=== PATIENT | male | born 1945 | race Caucasian/White ===

== ENCOUNTER 2018-04-20 18:10 | Emergency (ER) | payer MEDICARE, BC ==
[2018-04-20 18:28] VITALS: BP 155/86
--- NOTE | 2018-04-20 18:40 | EDM.PDOC ---
<Shayne Birmingham - Last Filed: 04/20/18 19:58> ED HPI GENERAL MEDICAL PROBLEM - General Chief Complaint: Lower Extremity Injury/Pain Stated Complaint: LT LEG INJURY Time Seen by Provider: 04/20/18 18:40 - History of Present Illness INITIAL COMMENTS - FREE TEXT/NARRATIVE: 72-year-old male presents to the emergency room with a left leg injury Patient was out feeding his cats and dogs slipped on the ice and twisted his foot in and developed significant discomfort around his ankle. He was brought into the emergency room for evaluation. Patient denies any other injuries associated with this Left Lower Leg Pain Score (Numeric/FACES): 5 - Related Data Allergies Allergy/AdvReac Type Severity Reaction Status Date / Time No Known Allergies Allergy Verified 04/06/16 08:12 Home Meds: Home Meds Aspirin [Ecotrin] 162 mg PO DAILY 04/05/16 [History] Ramipril 1 cap PO DAILY 04/05/16 [History] Tamsulosin [Flomax] 1 cap PO BID 04/05/16 [History] Triamcinolone Acetonide [Triamcinolone Acetonide 0.1% Crm] 1 applic TOP ASDIRECTED PRN 04/05/16 [History] atorvaSTATin [Lipitor] 1 tab PO DAILY 04/05/16 [History] Acetaminophen/HYDROcodone [[place] 325-5 MG] 1 - 2 tab PO Q6H PRN #30 tablet 04/20 [Rx] Past Medical History HEENT History: Reports: Impaired Vision Cardiovascular History: Reports: Afib, CAD, High Cholesterol, Hypertension, [place], Other (See Below) Other Cardiovascular History: afib (post op), bradycardia, mitral and tricuspid valve regurgitation Respiratory History: Reports: None Gastrointestinal History: Reports: None Genitourinary History: Reports: BPH, Other (See Below) Other Genitourinary History: prostatitis 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 Musculoskeletal History: Reports: None Neurological History: Reports: None Psychiatric History: Reports: None Endocrine/Metabolic History: Reports: None Hematologic History: Reports: None Immunologic History: Reports: None Oncologic (Cancer) History: Reports: None Dermatologic History: Reports: Eczema - Past Surgical History HEENT Surgical History: Reports: Cataract Surgery Cardiovascular Surgical History: Reports: Coronary Artery Bypass Social & Family History - Caffeine Use Caffeine Use: Reports: None Review of Systems - Review of Systems Review Of Systems: See Below Respiratory: Reports: No Symptoms Cardiovascular: Reports: No Symptoms GI/Abdominal: Reports: No Symptoms Neurological: Reports: No Symptoms ED EXAM, GENERAL - Physical Exam Exam: See Below General Appearance: Alert, No Apparent Distress Respiratory/Chest: No Respiratory Distress, Lungs Clear, Normal Breath Sounds Cardiovascular: Regular Rate, Rhythm, No Edema, No Murmur Extremities: Other (Amylase his left leg shows no tenderness around the knee from palpation over the tibia and fibula proximally is nontender moving down is fairly unremarkable and he get very close to the ankle these get some discomfort around the lateral malleolus specifically over the anterior talofibular and calcaneofibular ligaments not a lot of posterior tenderness minimal discomfort over the medial malleolus neurovascular status of the foot is normal he has some skin changes related to age and fungal involvement of the nails.) Course - Vital Signs Last Recorded V/S: Last Vital Signs Temp 97.2 F 04/20/18 18:27 Pulse 85 04/20/18 18:27 Resp 20 04/20/18 18:27 BP 155/86 H 04/20/18 18:27 Pulse Ox 97 04/20/18 18:27 - Orders/Labs/Meds Orders: Active Orders 24 hr Category Date Time Status Ankle Min 3V Lt [CR] Stat Exams 04/20/18 18:45 Taken Lower Leg wo Cont Lt [CT] Stat Exams 04/20/18 19:55 Taken Meds: Medications Discontinued Medications Generic Name Dose Route Start Last Admin Trade Name Aubrey PRN Reason Stop Dose Admin Fentanyl 100 mcg 04/20/18 19:55 Sublimaze IVPUSH 04/20/18 19:56 ONETIME ONE Fentanyl 50 mcg 04/20/18 19:55 04/20/18 20:07 Sublimaze IM 04/20/18 19:56 50 mcg ONETIME ONE Administration Fentanyl 100 mcg 04/20/18 21:20 04/20/18 21:26 Sublimaze IVPUSH 04/20/18 21:21 100 mcg ONETIME ONE Administration Oxycodone/Acetaminophen 1 tab 04/20/18 19:59 04/20/18 20:06 Percocet 325-5 Mg PO 04/20/18 20:00 1 tab ONETIME ONE Administration - Re-Assessments/Exams Free Text/Narrative Re-Assessment/Exam: 04/20/18 20:07 X-ray examination of the ankle shows spiral oblique comminuted fracture of the distal tibia with joint involvement he has distal fibular fracture as well. X- rays were reviewed by Dr. Geronimo agrees with splinting and follow-up anticipating surgical repair this next week. Dr. Geronimo is anticipating consult to Dr. Anshul Crabtree for this anticipated procedure. The patient will be placed in a posterior splint with medial lateral stirrup. Prior to splinting the patient will have a CT of the lower extremity. Dr. Geronimos office will contact the patient with the information I did notify Dr. Geronimo of a change in the patient's phone number [phone]. 04/20/18 20:11 Departure - Departure Disposition: Home, Self-Care 01 Clinical Impression: Fracture of distal end of tibia - Discharge Information Prescriptions: Acetaminophen/HYDROcodone [[place] 325-5 MG] 1 - 2 tab PO Q6H PRN #30 tablet PRN Reason: Pain Instructions: Pain Medicine Instructions, [id number], Cast or Splint Care, Adult, Crutch Use, Adult, [id number], Tibial Fracture, Adult Referrals: Pepito Esquivel Jr, MD [Primary Care Provider] - Forms: ED Department Discharge Additional Instructions: Return to the emergency room with any questions problems or worsening symptoms. Return with worsening pain. Even though your leg is splinted never put weight on it. Use crutches all the time. Keep your leg elevated as much as you can this will help minimize swelling and discomfort keep it up at the level of your heart. Use the pain medication as needed. It is anticipated [facility] in [place] we'll contact you for an appointment on Sunday their phone number is [phone]. Dr. Geronimo is the orthopedic surgeon I discussed your case with <Magalis Magdaleno - Last Filed: 04/20/18 22:09> ED TRAUMA EXTREMITY PROCEDURES - Splinting Left Lower Extremity Pre-Procedure NV Status: Normal Post-Procedure NV Status: Normal Splint Material: Fiberglass Splint Design: Other (posterior splint with stirrup splint) Applied & Form Fitted By: Provider Provider Post-Splint Application NV Check: NV Status Normal Complications: No Progress/Comments: Patient tolerated the procedure well. Course - Re-Assessments/Exams Free Text/Narrative Re-Assessment/Exam: 04/20/18 22:05 Patient is resting comfortably after receiving fentanyl and a short posterior splint with stirrup. CT results of his lower leg reveals commuted and slightly displaced fracture involving the distal end fibula. Patient is stable and ready for discharge. I did instruct the patient on compartment syndrome and nonweightbearing. Patient verbalized understanding and is comfortable with plan for discharge. I did reemphasize to the patient that he is to follow-up with in [place] at the [facility] on April 23. I instructed the patient to return to the emergency room for any new or acutely worsening symptoms. Departure - Departure Time of Disposition: 22:07 - Discharge Information *PRESCRIPTION DRUG MONITORING PROGRAM REVIEWED*: Not Applicable *COPY OF PRESCRIPTION DRUG MONITORING REPORT IN PATIENT LEONIDES: Not Applicable
[2018-04-20] MEDS ORDERED: fentaNYL 100 MCG/2 ML SDV IVPUSH ONE ×2 (19:55→21:20)
[2018-04-20] MEDS ORDERED: fentaNYL 100 MCG/2 ML SDV IM ONE (19:55)
[2018-04-20] MEDS ORDERED: Acetaminophen/oxyCODONE 325-5 MG Tab PO ONE ×3 (19:59→22:15)
[2018-04-20] MEDS ORDERED: Acetaminophen/HYDROcodone 325-5 MG Tab PO ONE (23:01)
[2018-04-20] MEDS ORDERED: Ondansetron 4 MG Tab.DIS PO ONE (23:06)
--- NOTE | 2018-04-22 07:38 | CT ---
CT left lower extremity Technique: Multiple axial sections were obtained from above the knee joint inferiorly through the foot within the left lower extremity. Reconstructed coronal and sagittal images were reviewed. Comparison: Previous plain film study performed earlier on the same day (6:59 PM). Findings: Medial joint space narrowing is seen within the knee. Mild degenerative change is noted within the patellofemoral joint. Comminuted fracture is identified within the distal diaphysis of the tibia. Tibial fracture extends into the ankle joint. Tibial fracture shows mild comminution with mild apex anterior angulation. Fracture fragments are displaced up to 9 mm. Distal fibular fracture is also noted which shows comminution and displacement up to 6 mm. Diffuse soft tissue swelling is noted. Impression: 1. Comminuted left tibial fracture with articular extension into the ankle. Mild displacement and angulation is seen. 2. Comminuted distal fibular fracture showing mild displacement. 3. Soft tissue swelling. Diagnostic code #3 I agree with preliminary report from [facility], finalized on 04/20/18, 10:48 PM Central Time
--- NOTE | 2018-04-22 08:14 | CR ---
Left ankle: Three views of the left ankle were obtained. Comparison: No previous study. Fracture is identified within the distal diaphysis of the tibia showing comminution as well as extension into the ankle joint. Mild displacement is seen up to 6.8 mm. Comminuted distal fibular fracture is noted with displacement up to 6 mm. Soft tissue swelling is noted. Ankle mortise appears symmetric. Impression: 1. Distal tibia and fibular fractures as noted above. Diagnostic code #3
== END 2018-04-20 23:25 | disposition home or self-care (01) ==
LOC: JD.ED 18:10
DX: S82.302A Unspecified fracture of lower end of left tibia, initial encounter for closed fracture (principal); S82.832A Other fracture of upper and lower end of left fibula, initial encounter for closed fracture; I48.91 Unspecified atrial fibrillation; E78.00 Pure hypercholesterolemia, unspecified; I10 Essential (primary) hypertension; I25.2 Old myocardial infarction; Z95.1 Presence of aortocoronary bypass graft; Z79.82 Long term (current) use of aspirin; Z79.899 Other long term (current) drug therapy; W00.0XXA Fall on same level due to ice and snow, initial encounter
CPT/HCPCS: 29515; 73610; 73700; 96374; 96376; 99284; A9270; J3010; 99283

== ENCOUNTER 2018-07-06 08:33 | Emergency (ER) | payer MEDICARE, BC ==
--- NOTE | 2018-07-06 09:05 | EDM.PDOC ---
ED HPI GENERAL MEDICAL PROBLEM - General Chief Complaint: CPR in Progress Stated Complaint: [facility] Time Seen by Provider: 07/06/18 08:33 - History of Present Illness INITIAL COMMENTS - FREE TEXT/NARRATIVE: 72-year-old male brought in by EMS in cardiac arrest According to family brother and sister, the patient fell in the bathroom around 7:30 this morning he was sitting on a stool. He is recovering from a lower leg fracture. EMS arrived 20-30 minutes after bystander CPR was started. He found the patient in [facility] got a Pravin airway in place did compressions gave fluids bicarbonate and 4 rounds of epi before arrival here upon arrival here we found to be in asystole. He has a cardiac history exactly I'm not sure. - Related Data Allergies Allergy/AdvReac Type Severity Reaction Status Date / Time No Known Allergies Allergy Verified 04/06/16 08:12 Home Meds: Home Meds Aspirin [Ecotrin] 162 mg PO DAILY 04/05/16 [History] Ramipril 1 cap PO DAILY 04/05/16 [History] Tamsulosin [Flomax] 1 cap PO BID 04/05/16 [History] Triamcinolone Acetonide [Triamcinolone Acetonide 0.1% Crm] 1 applic TOP ASDIRECTED PRN 04/05/16 [History] atorvaSTATin [Lipitor] 1 tab PO DAILY 04/05/16 [History] Acetaminophen/HYDROcodone [[place] 325-5 MG] 1 - 2 tab PO Q6H PRN #30 tablet 04/20 [Rx] Past Medical History HEENT History: Reports: Impaired Vision Cardiovascular History: Reports: Afib, CAD, High Cholesterol, Hypertension, [place], Other (See Below) Other Cardiovascular History: afib (post op), bradycardia, mitral and tricuspid valve regurgitation Respiratory History: Reports: None Gastrointestinal History: Reports: None Genitourinary History: Reports: BPH, Other (See Below) Other Genitourinary History: prostatitis VIDEO PRODUCTION INTERN History: Reports: None Musculoskeletal History: Reports: None Neurological History: Reports: None Psychiatric History: Reports: None Endocrine/Metabolic History: Reports: None Hematologic History: Reports: None Other Hematologic History: states was anemic after [place], was on med. Immunologic History: Reports: None Oncologic (Cancer) History: Reports: None Dermatologic History: Reports: Eczema - Infectious Disease History Infectious Disease History: Reports: Measles - Past Surgical History HEENT Surgical History: Reports: Cataract Surgery Cardiovascular Surgical History: Reports: Coronary Artery Bypass Social & Family History - Caffeine Use Caffeine Use: Reports: None ED ROS GENERAL - Review of Systems Review Of Systems: Unable To Obtain ED EXAM, CPR - Physical Exam Exam: See Below Limited By: Other (Unresponsive CPR in progress) General Appearance: Other (Patient receiving good quality CPR poor skin color) Eye Exam: Bilateral Eye: Other (Pupils unresponsive) Neck: Other (We placed a c-collar with the unknown type of fall) Respiratory Chest: Other (Bilateral breath sounds with a pravin air in place) GI/Abdominal Exam: Other (Mild to moderate distention) 1+: Femoral (R) (With compressions only), Femoral (L) (With compressions only) Extremities: Other (Lower leg cast left lower leg) Course - Re-Assessments/Exams Free Text/Narrative Re-Assessment/Exam: 07/06/18 09:07 Patient was brought to trauma bay 2 he was found to be in asystole compressions continued several rounds of epinephrine given we demonstrated no shockable rhythm or evidence of electrical cardiac activity no palpable pulses. Other than created by compressions. After this story was put together it appears the patient been down for nearly an hour and 20 minutes discussed the situation with the family and terminated resuscitative efforts. Resuscitative efforts stopped at 08:50 Departure - Departure Time of Disposition: 09:09 Disposition: 20 Preliminary Cause of *Q: Cardiac Arrest Clinical Impression: Cardiac arrest - Discharge Information Forms: ED Department Discharge
== END 2018-07-06 14:01 | disposition expired ==
LOC: JD.ED 08:33
DX: I46.9 Cardiac arrest, cause unspecified (principal); I10 Essential (primary) hypertension; I48.91 Unspecified atrial fibrillation; I25.10 Atherosclerotic heart disease of native coronary artery without angina pectoris; I25.2 Old myocardial infarction; Z98.49 Cataract extraction status, unspecified eye; Z95.1 Presence of aortocoronary bypass graft; Z79.82 Long term (current) use of aspirin; Z79.899 Other long term (current) drug therapy
CPT/HCPCS: 92950; 96374; 96375; 99283; 99285-25